=== PATIENT | female | born 1945 | race Caucasian/White ===

== ENCOUNTER 2017-04-10 12:44 | Emergency (ER) | payer MEDICARE, BC ==
--- NOTE | ~2017-04-10 | CR211 ---
[facility] A Service of [facility] & [facility] RADIOLOGY TEXT RESULTS PATIENT: CANDI ESPOSITO LOCATION: [facility] : 43 UNIT #: [id number] AGE: [address]: Jennifer Benjamin MD SEX: F ORDER DR: [id number] [facility] [address] [place], [place] [address] [id number] E MR#: [id number] #: [id number] NAME: CANDI ESPOSITO. : 1945 SEX: F STUDY DATE/TIME: 04/10/2017 15:44 UNIT: [facility] ROOM: STUDY DESCRIPTION: CR Ribs Uni 2 View W PA Ch Rt Attending Physician: Jennifer Benjamin M.D. Ordering Physician: Jennifer Benjamin M.D. Primary Care Physician: Silvestre Macias M.D. MEDICAL IMAGING REPORT This report is preliminary unless electronic signature is present EXAM Right rib series, 04/10/2017 HISTORY Right-sided chest rib pain, possible pneumonia per patient, 1 week for more duration. Severe cough, congestion. No trauma. FINDINGS AP radiograph of the chest presented with AP and oblique views of the right ribs. Comparison chest radiograph 02/06/2016. [id number]-[id number] levoscoliosis lumbar spine. No acute appearing bony abnormality. No right rib fracture is seen. Mild to moderate cardiac enlargement. Lungs well inflated. Mild vascular prominence suggesting mild vascular congestion. No autumn pulmonary edema, pleural effusion or pneumothorax. No suspicious nodule. No indication of pneumonia on these images. Visualized bowel gas pattern normal. Dictated by... Arthur Bustos M.D. THIS IS AN ELECTRONICALLY VERIFIED REPORT Arthur Bustos M.D. at 04/11/2017 8:13 AM ELIEZER/jennifer TD: 04/10/2017 23:17 JOB #: [id number] MEDICAL IMAGING REPORT Page 1 of 1 COPY
--- NOTE | ~2017-04-10 | EKG ---
PATIENT: CANDI ESPOSITO UNIT #: [id number] Ventricular Rate: 53 BPM Atrial Rate: 53 BPM P-R Interval: 182 ms QRS Duration: 100 ms Q-T Interval: 406 ms QTC Calculation(Bezet): 380 ms P Dustin: 40 degrees Calculated R Dustin: -50 degrees Calculated T Dustin: 18 degrees Diagnosis Line: Sinus bradycardia Diagnosis Line: Low voltage QRS Diagnosis Line: Left anterior fascicular block Diagnosis Line: Abnormal ECG Diagnosis Line: When compared with ECG of 06-FEB-2016 19:27, Diagnosis Line: No significant change was found Diagnosis Line: Confirmed by GUI SUAREZ MD ([id number]) on 04/10/2017 Diagnosis Line: 4:54:56 PM INTERPRETING MD: DANIELA GRAJEDA
--- NOTE | ~2017-04-10 | CT16 ---
[facility] A Service of [facility] & [facility] RADIOLOGY TEXT RESULTS PATIENT: CANDI ESPOSITO LOCATION: [facility] : 43 UNIT #: [id number] AGE: [address]: Jennifer Benjamin MD SEX: F ORDER DR: [id number] [facility] [address] [place], [place] [address] [id number] E MR#: [id number] Acc #: [id number] NAME: CANDI ESPOSITO. : 1945 SEX: F STUDY DATE/TIME: 04/10/2017 17:26 UNIT: [facility] ROOM: STUDY DESCRIPTION: CT Angio Chest for PE Attending Physician: Jennifer Benjamin M.D. Ordering Physician: Jennifer Benjamin M.D. Primary Care Physician: Silvestre Macias M.D. MEDICAL IMAGING REPORT This report is preliminary unless electronic signature is present EXAM CT angiography chest for PE, 04/10/2017 HISTORY D-dimer 1402 on 04/10/2017 at 1522 hours. Cough, chest pain, short of air, right side rib pain, wheezing [address] exam was performed with one or more of the following radiation dose reduction techniques: automatic exposure control, adjustment of mA and/or kV according to patient size, and iterative reconstruction. FINDINGS CT pulmonary angiography performed with intravenous administration 80 mL Isovue-370. Three-dimensional reconstructions performed through pulmonary arteries. Comparison 11/04/2012. Thyroid unremarkable. No axillary, mediastinal, or hilar adenopathy. Mild cardiac enlargement. No pleural effusions. Calcified granulomata in liver. Gallbladder, spleen, pancreas, adrenal glands, and kidneys notable for small bilateral renal cysts. No suspicious renal findings. No upper abdominal adenopathy. Small hiatal hernia. Visualized portions of the stomach, small bowel, colon unremarkable. The lungs show areas of borderline bronchiectasis in the central lungs and the bilateral lower lobes. Some retained secretions in the right lower lobe segmental and subsegmental bronchi posteromedially. Some minimal dependent atelectasis. No dense airspace disease. No suspicious nodule. Bony structures show degenerative changes. No acute bony abnormality. Pulmonary arteries well opacified. Main pulmonary artery measures about 3.4 cm in diameter, not significantly changed from prior study. This may be a reflection of underlying pulmonary arterial hypertension. No PE. Ectatic aortic root measuring about 3.6 cm in diameter at level sinuses of STS. [facility] A Service of [facility] & [facility] RADIOLOGY TEXT RESULTS PATIENT: CANDI ESPOSITO LOCATION: [facility] : 43 UNIT #: [id number] AGE: [address]: Jennifer Benjamin MD SEX: F ORDER DR: Shanelle. No change. Ectatic ascending aorta measuring up to about 3.8 cm in diameter. No change. Visualized aortic branch vessels are patent. No dissection. IMPRESSION 1. No PE. Main pulmonary artery prominent at 3.4 cm in diameter. No change. This may be a reflection of some degree of underlying pulmonary arterial hypertension. 2. No aortic dissection. Ectatic aortic root measuring 3.6 cm in diameter at level of sinuses of Valsalva. Stable. Ectatic ascending aorta measuring 3.8 cm in diameter. Stable. Visualized aortic branch vessels patent. 3. Mild central and lower lobe bronchiectasis. There are some retained secretions in the right lower lobe posterior basilar segmental and subsegmental bronchi. There is some minimal dependent atelectasis. No dense airspace disease, pleural effusion pneumothorax or suspicious nodule. 4. Mild cardiac enlargement. 5. No acute-appearing abnormality in the upper abdomen. See details in body of report. Note made of a small hiatal hernia. See remainder of incidental findings in body of report above. Dictated by... Arthur Bustos M.D. THIS IS AN ELECTRONICALLY VERIFIED REPORT Arthur Bustos M.D. at 04/11/2017 8:14 AM Stacy TD: 04/11/2017 00:41 JOB #: [id number] MEDICAL IMAGING REPORT Page 1 of 1 COPY
[~2017-04-10 12:44] MED LIST: ALBUTEROL17 GM INH; ANTIVERT12.5 MG PO; ASPIRIN PO; ASPIRIN81 M1 PO; BUMEX1 MG PO; CEFTIN PO; LASIX PO; LISINOPRIL PO; PHENERGAN25 MG PO; PROMETHAZINE V240 ML PO; SIMVASTATIN40 MG PO; ULTRAM PO; VYTORIN 10/40 T1 TAB PO; ZOFRAN ODT4 MG PO
[2017-04-10 14:07] LABS: BASOPHIL% 0.3 % (0-2.5); EOSINOPHIL% 0.2 % (0.0-7.0); HEMOGLOBIN 13.5 gm/dL (12.0-16.0); LYMPHOCYTE% 32.8 % (17.0-45.0); MEAN CELL VOLUME 97.5 FL (83-96); MEAN CORPUSCULAR HEMOGLOBIN 31.3 PG (28-34); MEAN CORPUSCULAR HGB CONC 32.1 g/dL (30-36); MEAN PLATELET VOLUME 8.2 FL (6.5-11.5); MONOCYTE# 0.9 X10e3 (0-1.0); MONOCYTE% 9.3 % (3.0-12.0); NEUTROPHIL# 5.3 X10e3 (1.5-7.1); NEUTROPHIL% 57.4 % (40-75); PLATELET COUNT 237 X10e3 (140-420); RED CELL DISTRIBUTION WIDTH 15.6 % (11.0-15.5); WHITE BLOOD COUNT 9.3 X10e3 (4.0-10.5)
[2017-04-10 14:19] LABS: DIFF IND NO
[2017-04-10 14:27] LABS: POC - CKMB 2.6 ng/mL (0.0-7.9); POC - TROPONIN <0.05 ng/mL (<=0.05)
[2017-04-10 14:29] LABS: BILIRUBIN, DIRECT 0.1 mg/dL (0.0-0.2); BILIRUBIN,INDIRECT 0.6 mg/dL (0.0-0.9); BILIRUBIN,TOTAL 0.7 mg/dL (0.2-2.0); CALCIUM SERUM 8.9 mg/dL (8.4-10.2); GLOM FILT RATE Estimated 55.9 mL/min (>60); POTASSIUM 3.6 mmol/L (3.5-5.1); PROTEIN TOTAL SERUM 7.9 g/dL (6.0-8.3)
[2017-04-10 15:45] LABS: POC - CKMB 2.8 ng/mL (0.0-7.9); POC - TROPONIN <0.05 ng/mL (<=0.05)
[2017-07-12] MEDS ORDERED: SIMVASTATIN40 MG PO (10:25)
[2017-07-12] MEDS ORDERED: ALLOPURINOL300 MG PO (10:26)
[2017-07-12] MEDS ORDERED: BUMETANIDE1 MG PO (10:26)
[2017-07-12] MEDS ORDERED: ASPIRIN EC81 M1 PO (10:27)
== END 2017-04-10 19:24 | disposition home or self-care (01) ==
LOC: CED 12:44
PROVIDERS: Emergency Medicine
DX: J40 Bronchitis, not specified as acute or chronic (principal); I50.9 Heart failure, unspecified
CPT/HCPCS: 36415; 71101; 71275; 80048; 80076; 82553; 83880; 84484; 85025; 85379; 93005; 94640; 99285; Q9967

== ENCOUNTER → 2017-07-18 | Day surgery (SDC) | payer MEDICARE, BC ==
[~2017-07-18] MED LIST changes: +ALLOPURINOL300 MG PO; +ASPIRIN EC81 M1 PO; +BUMETANIDE1 MG PO
--- NOTE | ~2017-07-18 | OR ---
Unit #: [id number] #: [id number] Patient: CANDI ESPOSITO [id number] [address] [address] [id number] O MR#: [id number] NAME: CANDI ESPOSITO ROOM: Date of Procedure: 07/18/2017 Admission Date: 07/18/2017 Surgeon: Radames Cruz Jr., M.D. : 1945 Attending Physician: Radames Cruz Jr., M.D. Primary Care Physician: Silvestre Macias M.D. OPERATIVE REPORT INDICATION FOR PROCEDURE The patient is a 72-year-old white female, recently was seen in the office complaining of a bulging area in the left upper quadrant of her abdomen, but no obvious hernia by exam. She has also had problems with dysphagia, which has been progressive recently and also questions whether she may have some family history of colon cancer as her last colonoscopy was over 6 years ago. She is brought in this time request of EGD and colonoscopy for workup to rule out any pathologic problems as well as possible esophageal dilatation for her dysphagia. She understands the procedures including the risks, including that of bleeding and perforation, especially with the esophagus and consents. PREOPERATIVE DIAGNOSES Possible esophageal stenosis with dysphagia, possible occult ulcer disease, possible colon polyps or malignancy. POSTOPERATIVE DIAGNOSES On upper endoscopy, the patient was noted to have evidence of a small hiatal hernia with mild distal esophageal stenosis and on colonoscopy to the cecum, she was noted to have evidence of a small internal hemorrhoidal tags as well as diverticulosis of left colon, but no polyps, no tumors, and no cancer. ANESTHESIA MAC anesthesia. PROCEDURES PERFORMED Flexible fiberoptic esophagogastroduodenoscopy with esophageal dilatation from 18 to 20 mm and flexible colonoscopy to the cecum. DESCRIPTION OF PROCEDURE The patient was positioned in Treviño position with left side down. After being given MAC anesthesia, the Olympus XQ scope was passed through the proximal esophagus. The entire esophagus was examined. Proximal two-thirds appeared normal. In the area of the GE junction, there was some mild distal esophageal stenosis without significant esophagitis. The scope was advanced through the GE junction and the cardia, and down to the fundic and antral region of the stomach, retroflexed back up to the area of the cardia. There was a small hiatal hernia present. The stomach distended well without evidence of rigidity. No evidence of any gastric ulcer disease and no evidence of any significant gastritis. The scope was advanced down the prepyloric region through the pylorus into the duodenal Unit #: [id number] #: [id number] Patient: CANDI ESPOSITO L bulb and down to the second portion of the duodenum. The entire duodenal portion examination was with within normal limits. The scope was then slowly removed up to the area of the fundus. An 18 to 20 mm balloon dilator placed and brought up in the distal esophagus and used to dilate the esophagus gently from 18 to 19 to 20 mm without evidence of any tears, perforation, or bleeding. The scope was then removed along with the dilator and the patient was repositioned for colonoscopy. Digital rectal examination was performed, which revealed no palpable mass or tenderness. No blood or stool in the rectal ampulla. The Olympus colonoscope was advanced through the anal canal up the rectum and retroflexed down to the area of the anorectal region. There was small internal hemorrhoidal tags, but no evidence of any bleeding or other abnormalities. The scope was then straightened and advanced up in the rectosigmoid, in the sigmoid and descending colon areas, there were multiple diverticula without evidence of diverticulitis. The scope was then advanced around the splenic flexure and the transverse colon, around hepatic flexure and ascending colon, down in the area of the cecum. The light from the tip of the scope could be seen transilluminating through right lower quadrant abdominal wall area. Multiple attempts advancing the scope up the distal ileum were unsuccessful. The scope was slowly removed. There were no tumors, polyps, cancer, or AVMs. No evidence of any colitis or acute diverticulitis. The caliber of the colon appeared normal throughout without evidence of narrowing or obstruction. The scope was removed. The patient tolerated the procedure well and discharged in satisfactory condition. Dictated by... Radames Cruz Jr., M.D. JMB/michelle TD: 07/18/2017 11:32 JOB #: [id number] CC: Silvestre Macias M.D. OPERATIVE REPORT Page 1 of 1 X Radames Cruz MD PROCEDURE OPERATIVE NOTE
== END | disposition home or self-care (01) ==
LOC: COPS 05:45
DX: K57.30 Diverticulosis of large intestine without perforation or abscess without bleeding (principal); K22.2 Esophageal obstruction; K44.9 Diaphragmatic hernia without obstruction or gangrene; K64.8 Other hemorrhoids; I25.10 Atherosclerotic heart disease of native coronary artery without angina pectoris; N19 Unspecified kidney failure; I10 Essential (primary) hypertension; E78.5 Hyperlipidemia, unspecified; M81.0 Age-related osteoporosis without current pathological fracture; E66.01 Morbid (severe) obesity due to excess calories; Z68.39 Body mass index [BMI] 39.0-39.9, adult; Z87.01 Personal history of pneumonia (recurrent); Z88.5 Allergy status to narcotic agent; Z88.8 Allergy status to other drugs, medicaments and biological substances; Z79.82 Long term (current) use of aspirin; Z79.899 Other long term (current) drug therapy; Z98.51 Tubal ligation status; Z96.652 Presence of left artificial knee joint; Z98.890 Other specified postprocedural states